=== PATIENT | female | born 1965 ===

== ENCOUNTER 2021-01-26 11:30 | Inpatient (IN) | payer OTHER ==
[~2021-01-26] VITALS: Ht 157.5 cm; Wt 86.2 kg
[2021-01-26] MEDS ORDERED: DIOVAN160 M1 PO (15:12)
[2021-01-26] MEDS ORDERED: NORVASC5 MG PO (15:12)
[2021-01-26] MEDS ORDERED: CRESTOR5 MG PO (15:13)
[2021-01-26] MEDS ORDERED: PAXIL20 MG PO (15:13)
== END 2021-02-05 12:18 | disposition home or self-care (01) | DRG 743 ==
LOC: O/R 02-02 07:54 → SURH 02-02 11:15 → OB/GYN 02-02 19:15
PROVIDERS: ADMIT Specialist; ATTEND Specialist
PROC: 0UT20ZZ Resection of Bilateral Ovaries, Open Approach (ICD-10-PCS; 2021-02-02)
PROC: 0UT70ZZ Resection of Bilateral Fallopian Tubes, Open Approach (ICD-10-PCS; 2021-02-02)
PROC: 0UT90ZZ Resection of Uterus, Open Approach (ICD-10-PCS; principal; 2021-02-02 11:15)
DX: D25.1 Intramural leiomyoma of uterus (principal); D25.2 Subserosal leiomyoma of uterus; N80.0 Endometriosis of uterus; N83.331 Acquired atrophy of right ovary and fallopian tube; N83.332 Acquired atrophy of left ovary and fallopian tube; I10 Essential (primary) hypertension; E78.5 Hyperlipidemia, unspecified